=== PATIENT | male | born 1945 | race Caucasian/White ===

== ENCOUNTER 2021-05-30 10:33 | Emergency (ER) | payer BC ==
[~2021-05-30] VITALS: Ht 180.3 cm; Wt 105.2 kg
[~2021-05-30 10:33] MED LIST: ASPI-610 PO; ATOR40TA PO; CARI250T PO; GABA-534 PO; HYDR-3326 PO; LORA-259 PO; PANT40VI IV; SERT-439 PO; TIOT18CA3 IH; [UNRECOGNIZED DRUG - CODE] PO
--- NOTE | 2021-05-30 11:15 | NUR ---
Dr Kwon at bedside for MSE.
[2021-05-30] MEDS ORDERED: ONDANSETRON 4 MG/2 ML VIAL IV ONE (11:30)
[2021-05-30] MEDS ORDERED: MORPHINE SULFATE 4 MG/1 ML DISP.SYRIN IV ONE (11:30)
[2021-05-30] MEDS ORDERED: TRIA0.252 PO (11:31)
[2021-05-30] MEDS ORDERED: LORA2TAB95 PO (11:31)
[2021-05-30] MEDS ORDERED: UMEC1BLS IH (11:31)
[2021-05-30] MEDS ORDERED: BENA40TA8 PO (11:31)
[2021-05-30] MEDS ORDERED: MEMA10TA PO ×2 (11:31)
[2021-05-30] MEDS ORDERED: PITA4TAB PO (11:31)
[2021-05-30] MEDS ORDERED: SERT50TA PO (11:31)
[2021-05-30] MEDS ORDERED: TAMS-3 PO (11:31)
[2021-05-30] MEDS ORDERED: ALBU18HF2 INH (11:31)
[2021-05-30] MEDS ORDERED: OMEP20CA15 PO (11:31)
[2021-05-30] MEDS ORDERED: UMEC62.5 IH (11:31)
[2021-05-30 11:36] LABS: HEMATOCRIT 44.4 % (36.7-47.1); MEAN CORPUSCULAR HEMOGLOBIN 32.1 uug (23.8-33.4); MEAN CORPUSCULAR VOLUME 93.6 fL (73.0-96.2); PLATELET COUNT (AUTO) 137 K/uL (152-348)
[2021-05-30 11:37] LABS: POTASSIUM 4.3 mmol/L (3.5-5.1)
[2021-05-30] MEDS ORDERED: MORPHINE SULFATE 4 MG/1 ML DISP.SYRIN ONE (11:40)
[2021-05-30] MEDS ORDERED: ONDANSETRON 4 MG/2 ML VIAL ONE (11:40)
[2021-05-30 11:43] LABS: BILIRUBIN,TOTAL 0.4 mg/dL (0.2-1.0); TOTAL PROTEIN, SERUM 7.6 g/dL (6.4-8.2)
[2021-05-30] MEDS ORDERED: SWABABLE VALVE TRANSFER SET EA MC ONE (11:59)
[2021-05-30] MEDS ORDERED: IOHEXOL 300MG/ML 100 ML INFUS..BTL ONE (11:59)
[2021-05-30] MEDS ORDERED: IV NORMAL SALINE 250 ML IV ONE (12:00)
[2021-05-30] MEDS ORDERED: IV NORMAL SALINE 100 ML BAG IV ONE (12:15)
[2021-05-30] MEDS ORDERED: CIPR500T5 PO (13:07)
[2021-05-30] MEDS ORDERED: METR500T PO (13:08)
[2021-05-30] MEDS ORDERED: CIPROFLOXACIN HCL 250 MG TABLET PO ONE (13:15)
[2021-05-30] MEDS ORDERED: METRONIDAZOLE 500 MG TABLET PO ONE (13:15)
--- NOTE | 2021-05-30 13:15 | NUR ---
IV NORMAL SALINE 1000 CC INFUSED AT THIS TIME. UNABLE TO RECORD IN MAR.
[2021-05-30] MEDS ORDERED: HYDR-3980 PO (13:19)
[2021-05-30] MEDS ORDERED: CIPROFLOXACIN HCL 250 MG TABLET ONE (13:26)
[2021-05-30] MEDS ORDERED: METRONIDAZOLE 500 MG TABLET ONE (13:26)
--- NOTE | 2021-05-30 13:45 | NUR ---
IV removed. Catheter intact and site benign. Pressure and 4x4 gauze applied to site. No bleeding noted. Written and verbal after care instructions given. Stressed follow up with PCP or return to ER for worsening s/s.Patient verbalizes understanding of instructions. Patient discharged to home in stable condition.
[2021-05-30 13:55] VITALS: BP 106/71
== END 2021-05-30 13:57 | disposition home or self-care (01) ==
LOC: ER 10:33
DX: K57.92 Diverticulitis of intestine, part unspecified, without perforation or abscess without bleeding (principal); I10 Essential (primary) hypertension; J44.9 Chronic obstructive pulmonary disease, unspecified; N40.0 Benign prostatic hyperplasia without lower urinary tract symptoms; D69.6 Thrombocytopenia, unspecified; Z86.73 Personal history of transient ischemic attack (TIA), and cerebral infarction without residual deficits; Z85.51 Personal history of malignant neoplasm of bladder; Z98.1 Arthrodesis status; Z88.8 Allergy status to other drugs, medicaments and biological substances; Z91.010 Allergy to peanuts; Z79.899 Other long term (current) drug therapy
CPT/HCPCS: 36415; 74177; 80053; 83690; 85025; 96361; 96374; 96375; 99285; J2270; J2405; Q9967; A4217; A4663; J7030; J7050